=== PATIENT | female | born 1960 | race Caucasian/White ===

== ENCOUNTER 2016-08-14 16:29 | Inpatient (IN) | payer OTHER ==
[2016-08-14] VITALS (19 sets, daily range): BP systolic 119–144; BP diastolic 55–79; PULSE 67–79; RESP 15–20; Ht 165.1 cm; Wt 80.0 kg
[~2016-08-14] VITALS: Ht 165.1 cm; Wt 80.0 kg
[2016-08-14] MEDS ORDERED: NITROGLYCERIN 2% 1 GM OINT PKT TD STA (16:44)
[2016-08-14] MEDS ORDERED: ASPIRIN 325 MG TAB PO STA (16:44)
[2016-08-14 16:52] LABS: ADD SCAN DIFF NO
[2016-08-14 16:53] LABS: BASOPHILS % 0.5 % (0.0-2.0); EOSINOPHILS # 0.2 10^3/ul (0.0-0.5); EOSINOPHILS % 3.6 % (0.0-7.0); HEMATOCRIT 35.9 % (37.0-47.0); HEMOGLOBIN 11.5 g/dl (12.0-16.0); LYMPHOCYTES # 1.9 10^3/ul (0.8-2.9); MEAN CORPUSCULAR HEMOGLOBIN 29.7 pg (29.0-33.0); MEAN CORPUSCULAR VOLUME 92.8 fl (82.0-101.0); MEAN PLATELET VOLUME 9.3 fl (7.4-10.4); MONOCYTE # 0.4 10^3/ul (0.3-0.9); MONOCYTES % 6.1 % (0.0-11.0); NEUTROPHIL # 3.9 10^3/ul (1.6-7.5); NEUTROPHILS % 60.6 % (39.0-77.0); PLATELET COUNT 245 10^3/UL (140-415); RED BLOOD COUNT 3.87 10^6/ul (4.20-5.40); WHITE BLOOD COUNT 6.4 10^3/ul (4.8-10.8)
[2016-08-14] MEDS ORDERED: NITROGLYCERIN (SL) 0.4 MG TAB SL PRN (17:00)
[2016-08-14] MEDS ORDERED: OMEP40CA6 PO (17:01)
[2016-08-14] MEDS ORDERED: METO5TAB58 PO (17:02)
[2016-08-14] MEDS ORDERED: LANT3I SC (17:02)
[2016-08-14] MEDS ORDERED: MTF1000T PO (17:03)
[2016-08-14] MEDS ORDERED: LOSA25TA5 PO (17:03)
[2016-08-14] MEDS ORDERED: LOVA20TA PO (17:03)
--- NOTE | 2016-08-14 17:05 | RADRPT ---
PROCEDURE: XR Chest. CLINICAL INDICATION: Chest pain TECHNIQUE: A single portable view of the chest was obtained. COMPARISON: None FINDINGS: The cardiomediastinal silhouette is within normal limits. The lung volumes are low with bibasilar co mpressive atelectasis. The lungs and pleural spaces are clear. The soft tissues and osseous structu res are unremarkable. IMPRESSION: No acute cardiopulmonary disease. Low lung volumes with bibasilar compressive atelectasis. RPTAT: HPNM Physician Iris Date Time Electronically viewed and signed by Prasanna Roque Physician on 08/14/2016 17:04 /
[2016-08-14 17:07] LABS: CHLORIDE 101 mmol/L (97-110); POTASSIUM 3.9 mmol/L (3.5-5.1); SODIUM 139 mmol/L (135-144)
[2016-08-14 17:08] LABS: INR 0.98
[2016-08-14] MEDS ORDERED: IODIXANOL LOCM 100 ML BTL ONE (17:08)
[2016-08-14] MEDS ORDERED: FENTAnyl 50 MCG/ML VIAL ONE (17:08)
[2016-08-14] MEDS ORDERED: NITROGLYCERIN (IC) 100 MCG/ML INJ ONE (17:08)
[2016-08-14] MEDS ORDERED: MIDAZOLAM 1 MG/ML 2 ML INJ ONE (17:08)
[2016-08-14] MEDS ORDERED: VERAPAMIL 5 MG INJ ONE (17:08)
[2016-08-14] MEDS ORDERED: HEPARIN 1000 UNITS/ML 10 ML INJ ONE (17:08)
[2016-08-14] MEDS ORDERED: LIDOCAINE 1% (MDV) 20 ML INJ ONE ×2 (17:08→17:58)
[2016-08-14] MEDS ORDERED: IOHEXOL 350MG/ML 50 ML BTL ONE (17:08)
[2016-08-14 17:09] LABS: PARTIAL THROMBOPLASTIN TIME 29.2 Sec (25.0-35.0)
[2016-08-14 17:10] LABS: ANION GAP 15 (8-16); BLOOD UREA NITROGEN 10 mg/dl (7-20); CARBON DIOXIDE 27 mmol/L (21-31); CREATININE 0.53 mg/dl (0.44-1.00)
[2016-08-14 17:11] LABS: CALCIUM 9.4 mg/dl (8.4-10.2); GLUCOSE 239 mg/dl (70-220)
[2016-08-14] MEDS ORDERED: SOD CHLORIDE 0.9% 500 ML ONE (17:12)
[2016-08-14 17:26] LABS: TROPONIN-I < 0.012 ng/ml (0.00-0.12)
--- NOTE | 2016-08-14 18:41 | ERA ---
ER Documentation Chief Complaint Date/Time DATE: 08/14/16 TIME: 18:38 Chief Complaint CHEST PAIN AND ABDOMINAL PAIN X 15 DAYS HPI Patient is a 55-year-old female with diabetes who presents with chest pain. The patient has left-sided chest pain and abdominal pain which started 15 days ago. It is been coming and going. The patient walked into the emergency department. She has had no treatment as of yet. ROS All systems reviewed and are negative except as per history of present illness. Medications Home Meds Reported Medications Metformin* (Glucophage*) 1,000 Mg Tablet, 1000 MG PO BID, #60 TAB 08/14/16 Losartan Potassium* (Losartan Potassium*) 25 Mg Tablet, 25 MG PO DAILY, TAB 08/14/16 Lovastatin* (Lovastatin*) 20 Mg Tablet, 20 MG PO DAILY, TAB 08/14/16 Metoclopramide* (Reglan*) 5 Mg Tablet, 5 MG PO AC MEALS Y for PRN, TAB 08/14/16 Insulin Glargine* (Lantus*) 100 Unit/Ml Soln, 50 UNIT SC BID, #1 VIAL 08/14/16 Omeprazole* (Omeprazole*) 40 Mg Capsule.dr, 40 MG PO DAILY, #30 CAP 08/14/16 Allergies Allergies: Coded Allergies: No Known Allergy (Unverified , 08/14/16) PMhx/Soc History of Surgery: No Anesthesia Reaction: No Hx Neurological Disorder: No Hx Respiratory Disorders: No Hx Cardiac Disorders: Yes (HTN, HYPERLIPIDEMIA) Hx Psychiatric Problems: No Hx Miscellaneous Medical Probl: Yes (DM) Hx Alcohol Use: No Hx Substance Use: No Hx Tobacco Use: No Smoking Status: Never smoker FmHx Family History: No coronary disease Physical Exam Vitals Vital Signs Date Time Temp Pulse Resp B/P Pulse Ox O2 Delivery O2 Flow Rate FiO2 08/14/16 16:34 98.7 85 18 158/72 98 Physical Exam Const: No acute distress Head: Atraumatic Eyes: Normal Conjunctiva ENT: Normal External Ears, Nose and Mouth. Neck: Full range of motion..~ No meningismus. Resp: Clear to auscultation bilaterally Cardio: Regular rate and rhythm, no murmurs Abd: Soft, non tender, non distended. Normal bowel sounds Skin: No petechiae or rashes Back: No midline or flank tenderness Ext: No cyanosis, or edema Neur: Awake and alert Psych: Normal Mood and Affect Result Diagram: 08/14/16 1645 08/14/16 1645 Results 24 hrs Laboratory Tests Test 08/14/16 16:45 White Blood Count 6.410^3/ul Red Blood Count 3.8710^6/ul Hemoglobin 11.5g/dl Hematocrit 35.9% Mean Corpuscular Volume 92.8fl Mean Corpuscular Hemoglobin 29.7pg Mean Corpuscular Hemoglobin Concent 32.0g/dl Red Cell Distribution Width 13.0% Platelet Count 88555^3/UL Mean Platelet Volume 9.3fl Neutrophils % 60.6% Lymphocytes % 29.0% Monocytes % 6.1% Eosinophils % 3.6% Basophils % 0.5% Nucleated Red Blood Cells % 0.0/100WBC Neutrophils # 3.910^3/ul Lymphocytes # 1.910^3/ul Monocytes # 0.410^3/ul Eosinophils # 0.210^3/ul Basophils # 0.010^3/ul Nucleated Red Blood Cells # 0.010^3/ul Prothrombin Time 13.0Sec Prothrombin Time Ratio 1.0 INR International Normalized Ratio 0.98 Activated Partial Thromboplast Time 29.2Sec Sodium Level 139mmol/L Potassium Level 3.9mmol/L Chloride Level 101mmol/L Carbon Dioxide Level 27mmol/L Anion Gap 15 Blood Urea Nitrogen 10mg/dl Creatinine 0.53mg/dl Glucose Level 239mg/dl Calcium Level 9.4mg/dl Troponin I < 0.012ng/ml Current Medications Medications (Trade) Dose Ordered Sig/Opal Route PRN Reason Start Time Stop Time Status Last Admin Dose Admin Aspirin (Aspirin) 325 mg ONCE STAT PO 08/14/16 16:44 08/14/16 16:45 DC 08/14/16 16:53 Nitroglycerin (Nitroglycerin 2% Oint) 1 inch ONCE STAT TD 08/14/16 16:44 08/14/16 16:45 DC 08/14/16 16:53 Procedures/MDM EKG read by me: Rate/Rhythm: Regular rate and rhythm at a normal rate Intervals: Normal Impression: ST elevations of V1 and V2 with reciprocal depressions of 2 and 3 consistent with STEMI Chest X-ray 1V Interpreted by me: Soft Tissue: No acute abnormalities Bones: No acute abnormalities Mediastinum/Cardiac Silhouette/Lungs: No acute abnormalities Patient is a 55-year-old female with diabetes who presents with chest pain. Her EKG showed STEMI at 1640 and I called a code STEMI immediately. The patient had walked in the emergency department. I spoke with Dr. Vasquez at 1644 and she agreed with cardiac catheterization. The patient was transferred to the cardiac [facility] at 1659 by the [facility] team. The patient was given aspirin nitroglycerin. Dr. Palmer prefers to anticoagulate in the [facility]. The patient will be admitted to the panel team and I spoke with Dr. Yuan for admission. At this point I doubt pneumonia, pneumothorax, pulmonary embolism, or aortic dissection. Critical Care: Time: 35 minutes excluding all billable procedures. Treatments/Evaluations: Close monitoring and treatment of unstable vital signs, cardiorespiratory, and neurologic status, while maintaining tight balance of fluid, respiratory, and cardiac interventions. Departure Diagnosis: Primary Impression: STEMI (ST elevation myocardial infarction) Qualified Code: I21.3 - ST elevation myocardial infarction (STEMI), unspecified artery Additional Impressions: Chest pain Qualified Code: R07.9 - Chest pain, unspecified type Anemia Qualified Code: D64.9 - Anemia, unspecified type Hyperglycemia Condition: Critical RONY GARCIA MD August 14, 2016 18:41
--- NOTE | 2016-08-14 18:46 | CONS ---
Date/Time of Note Date/Time of Note DATE: 08/14/16 TIME: 18:36 Assessment/Plan Assessment/Plan Chief Complaint/Hosp Course 55 yo with chest pain and abnormal ekg. This is likely acute gastritis, and ekg may represent a channelopathy such as Brugada Syndrome. 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 PPI Dietary counselling Consider GI evaluation Consultation Date/Type/Reason Admit Date/Time Date of Consultation: August 14, 2016 Referring Provider: RONY GARCIA MD Hx of Present Illness 55 yo with htn, dm, hchol, states compliant with meds, has had chest pain for the past 15 days. Pain worse today which led to her presentation today. Pain worse with eating, worse at night, pt diagnosed by pcp with gastritis and put on omeprazole with no relief, has had a lot of abdominal distension and belching. Pressure is in chest and abdomen, but more her chest. EKG in ER abnormal with ST elevations in V1-V2 and slight depressions in the inferior leads, thus patient taken to the [facility]. Coronaries had no evidence of acute lesions, LVEF normal with normal wall motion. Constitutional: improved, no complaints Eyes: no complaints ENT: no complaints Respiratory: no complaints Cardiovascular: chest pain (pressure) Gastrointestinal: decreased appetite, nausea, other (bloating) Genitourinary: no complaints Musculoskeletal: no complaints Skin: no complaints Neurologic: no complaints Endocrine: no complaints Lymphatic: no complaints Psychological: nl mood/affect, no complaints Immunologic: no complaints Past Medical History Medical History: diabetes, high cholesterol, hypertension Past Surgical History Past Surgical Hx: no surgical history Family History Significant Family History: no pertinent family hx (no premature cad) Social History Alcohol Use: none Smoking Status: Never smoker Exam/Review of Systems Vital Signs Vitals Vital Signs Date Time Temp Pulse Resp B/P Pulse Ox O2 Delivery O2 Flow Rate FiO2 08/14/16 16:34 98.7 85 18 158/72 98 Exam Constitutional: alert, oriented, well developed Psych: nl mood/affect Head: atraumatic, normocephalic Eyes: EOMI, nl conjunctiva, nl lids ENMT: nl external ears & nose Neck: No bruits, No jvd Respiratory: clear to auscultation, normal air movement Cardiovascular: nl pulses, regular rate and rhythm Neurological: nl mental status, nl speech Skin: nl turgor Results Result Diagram: 08/14/16 1645 08/14/16 1645 Results 24 hrs Laboratory Tests Test 08/14/16 16:45 White Blood Count 6.4 Red Blood Count 3.87 L Hemoglobin 11.5 L Hematocrit 35.9 L Mean Corpuscular Volume 92.8 Mean Corpuscular Hemoglobin 29.7 Mean Corpuscular Hemoglobin Concent 32.0 Red Cell Distribution Width 13.0 Platelet Count 245 Mean Platelet Volume 9.3 Neutrophils % 60.6 Lymphocytes % 29.0 Monocytes % 6.1 Eosinophils % 3.6 Basophils % 0.5 Nucleated Red Blood Cells % 0.0 Neutrophils # 3.9 Lymphocytes # 1.9 Monocytes # 0.4 Eosinophils # 0.2 Basophils # 0.0 Nucleated Red Blood Cells # 0.0 Prothrombin Time 13.0 Prothrombin Time Ratio 1.0 INR International Normalized Ratio 0.98 Activated Partial Thromboplast Time 29.2 Sodium Level 139 Potassium Level 3.9 Chloride Level 101 Carbon Dioxide Level 27 Anion Gap 15 Blood Urea Nitrogen 10 Creatinine 0.53 Glucose Level 239 H Calcium Level 9.4 Troponin I < 0.012 Medications Medications Current Medications Miscellaneous Information HOLD all METFORMIN ... ONCE ONCE XX ; Start 08/14/16 at 19:00; Stop 08/14/16 at 19:01; Status UNV Sodium Chloride (NS) 1,000 ml @ 75 mls/hr [id number] IV ; Start 08/14/16 at 18:31 ; Stop 08/14/16 at 23:30; Status UNV Procedures Procedures EKG from the ER shows ST elevations in V1 and V2 with very small R waves, and minor ST depressions in II and AVF. MICHEAL MCKEE August 14, 2016 18:46
--- NOTE | 2016-08-14 18:57 | EN ---
Date/Time of Note Date/Time of Note DATE: 08/14/16 TIME: 18:51 Event Note Cardiology Cardiology Event Note Cardiac Catheterization Report Date of Procedure: August 14, 2016 Pre-Procedure Dx: Chest pain with abnormal EKG with ST elevations in the anteroseptal leads Post-Procedure Dx: No acute coronary disease, normal lvef Procedures performed: Coronary angiography, left heart catheterization, left ventriculography, Findings: Left main long and normal LAD 20% mid. The distal vessel is very small, wraps around the apex. The second diagonal is also very small and has 95% ostial disease, the vessel measures maybe 1 mm in diameter. The left circumflex is small and nondominant, terminates at one moderate sized obtuse marginal The right coronary artery is large and dominant without significant disease LV gram demonstrates normal LV systolic function, EF 65%, no wall motion abnormalities. Indications: Patient presented with chest pain starting 15 days prior to presentation, worse and more severe today, EKG shows ST elevations in V1-V2 with reciprocal changes. Informed consent obtained. Patient received sedation with versed and fentanyl. Then access obtained in right radial artery after Yordy's test, modified Seldinger technique used, 6F sheath placed. Through the sheath, heparin 5000 units, verapamil 2.5 mg and ntg 200 mcg given. Unfortunately, wires and catheters would not pass to the ascending thoracic aorta, so access obtained in the right groin after fluoroscopy used for identifying landmarks, 6f sheath placed. Using a J-wire, a JR4 diagnostic and FL3.5 guide were advanced to the aortic root, engaged the RCA and LM respectively. Images taken with injection of contrast. Pigtail advanced to the ascending thoracic aorta, crossed the aortic valve and pressures measured, including a pullback. LV gram performed with injection of contrast. Discussion: Noncardiac chest pain likely secondary to GERD. Abnormal EKG, possibly Brugada Syndrome. Patient will be monitored overnight. MICHEAL MCKEE August 14, 2016 18:57
[2016-08-14 19:12] LABS: ADD SCAN DIFF NO
[2016-08-14 19:14] LABS: BASOPHILS % 0.5 % (0.0-2.0); EOSINOPHILS # 0.2 10^3/ul (0.0-0.5); EOSINOPHILS % 3.7 % (0.0-7.0); HEMATOCRIT 32.5 % (37.0-47.0); HEMOGLOBIN 10.2 g/dl (12.0-16.0); LYMPHOCYTES # 1.5 10^3/ul (0.8-2.9); LYMPHOCYTES % 25.9 % (15.0-51.0); MEAN CORPUSCULAR HEMOGLOBIN 29.4 pg (29.0-33.0); MEAN CORPUSCULAR HGB CONC 31.4 g/dl (32.0-37.0); MEAN CORPUSCULAR VOLUME 93.7 fl (82.0-101.0); MEAN PLATELET VOLUME 9.8 fl (7.4-10.4); MONOCYTE # 0.3 10^3/ul (0.3-0.9); MONOCYTES % 5.4 % (0.0-11.0); NEUTROPHIL # 3.7 10^3/ul (1.6-7.5); NEUTROPHILS % 64.3 % (39.0-77.0); PLATELET COUNT 199 10^3/UL (140-415); RED BLOOD COUNT 3.47 10^6/ul (4.20-5.40); RED CELL DISTRIBUTION WIDTH 13.1 % (11.5-14.5); WHITE BLOOD COUNT 5.8 10^3/ul (4.8-10.8)
[2016-08-14] MEDS ORDERED: SOD CHLORIDE 0.9% 1,000 ML IV SCH (21:00)
[2016-08-14] MEDS: ACCU-CHEK XX SCH (22:24)
[2016-08-14] MEDS ORDERED: ZOLPIDEM 5 MG TAB PO PRN (23:30)
[2016-08-14] MEDS ORDERED: POLYETHYLENE GLYCOL 17 GM PACKET PO ONE (23:30)
[2016-08-15] VITALS (12 sets, daily range): BP systolic 145–179; BP diastolic 67–78; PULSE 61–74; RESP 16–20
[2016-08-15] MEDS: ACCU-CHEK XX SCH ×4 (07:30→21:30)
--- NOTE | 2016-08-15 08:30 | PN ---
Date/Time of Note Date/Time of Note DATE: 08/15/16 TIME: 08:18 Assessment/Plan VTE Prophylaxis VTE Prophylaxis Intervention: ambulation Lines/Catheters IV Catheter Type (from Nrsg): Peripheral IV Assessment/Plan Chief Complaint/Hosp Course 55 yo with chest pain and abnormal ekg. This is likely acute gastritis, and ekg may represent a channelopathy such as Brugada Syndrome. 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 Exam/Review of Systems Vital Signs Vitals Vital Signs Date Time Temp Pulse Resp B/P Pulse Ox O2 Delivery O2 Flow Rate FiO2 08/15/16 08:17 64 08/15/16 07:43 98.0 18 160/71 97 08/14/16 21:41 Room Air Intake and Output 08/14/16 08/14/16 08/15/16 15:00 23:00 07:00 Intake Total 100 ml 300 ml Output Total 650 ml Balance -550 ml 300 ml Exam Constitutional: alert, oriented, well developed Psych: nl mood/affect Head: atraumatic, normocephalic Eyes: EOMI, PERRL, nl conjunctiva, nl lids, nl sclera ENMT: nl external ears & nose, nl lips & teeth, nl nasal mucosa & septum Neck: No bruits, No jvd Respiratory: clear to auscultation, normal air movement Cardiovascular: nl pulses, regular rate and rhythm Gastrointestinal: distended, soft, tender (diffusely) Musculoskeletal: nl extremities to inspection Extremities: normal pulses (right wrist and right groin sites intact, no bruit no hematoma) Neurological: nl mental status, nl speech Skin: nl turgor, No rash or lesions Results Result Diagram: 08/14/16 1905 08/14/16 1645 Results 24 hrs Laboratory Tests Test 08/14/16 16:45 08/14/16 19:05 08/14/16 20:22 08/14/16 22:16 White Blood Count 6.4 5.8 Red Blood Count 3.87 L 3.47 L Hemoglobin 11.5 L 10.2 L Hematocrit 35.9 L 32.5 L Mean Corpuscular Volume 92.8 93.7 Mean Corpuscular Hemoglobin 29.7 29.4 Mean Corpuscular Hemoglobin Concent 32.0 31.4 L Red Cell Distribution Width 13.0 13.1 Platelet Count 245 199 Mean Platelet Volume 9.3 9.8 Neutrophils % 60.6 64.3 Lymphocytes % 29.0 25.9 Monocytes % 6.1 5.4 Eosinophils % 3.6 3.7 Basophils % 0.5 0.5 Nucleated Red Blood Cells % 0.0 0.0 Neutrophils # 3.9 3.7 Lymphocytes # 1.9 1.5 Monocytes # 0.4 0.3 Eosinophils # 0.2 0.2 Basophils # 0.0 0.0 Nucleated Red Blood Cells # 0.0 0.0 Prothrombin Time 13.0 Prothrombin Time Ratio 1.0 INR International Normalized Ratio 0.98 Activated Partial Thromboplast Time 29.2 Sodium Level 139 Potassium Level 3.9 Chloride Level 101 Carbon Dioxide Level 27 Anion Gap 15 Blood Urea Nitrogen 10 Creatinine 0.53 Glucose Level 239 H Calcium Level 9.4 Troponin I < 0.012 Bedside Glucose 221 H 179 Test 08/15/16 07:56 Bedside Glucose 187 Medications Medications Current Medications Miscellaneous Information (* Miscellaneous Pharmacy Order) HOLD all METFORMIN ... ONCE XX ; Start 08/14/16 at 19:00; Stop 08/16/16 at 18:59 Zolpidem Tartrate (Ambien) 5 mg HS PRN PO INSOMNIA; Start 08/14/16 at 23:30 Acetaminophen/ Hydrocodone Bitart ([place] (5/325)) 1 tab Q4H PRN PO pain; Start 08/14/16 at 23:30 MICHEAL MCKEE August 15, 2016 08:30
--- NOTE | 2016-08-15 12:24 | HP ---
Date/Time of Note Date/Time of Note DATE: 08/15/16 TIME: 12:14 Assessment/Plan Lines/Catheters IV Catheter Type (from Nrsg): Peripheral IV Assessment/Plan Assessment/Plan IMPRESSION This is a 55 yo male with hx of HTN, DM, DL who c/o chest pain with EKG showing STEMI s/p cath without significant findings and as such had chest pain of non- cardiac origin. EKG finding likely of Brugada pattern Plan pt likely has gastritis. he will be discharged with PPI. He need to f/u closely with PCP. HPI/ROS Admit Date/Time Admit Date/Time Hx of Present Illness This is a 55 yo male with hx of HTN, DM, DL who c/o chest pain with EKG showing STEMI. Pt has a heart cath with following findings: Findings: Left main long and normal LAD 20% mid. The distal vessel is very small, wraps around the apex. The second diagonal is also very small and has 95% ostial disease, the vessel measures maybe 1 mm in diameter. The left circumflex is small and nondominant, terminates at one moderate sized obtuse marginal The right coronary artery is large and dominant without significant disease LV gram demonstrates normal LV systolic function, EF 65%, no wall motion abnormalities. It is felt that pt's chest pain was not cardiac in origin. ROS Eyes: no complaints ENT: no complaints Respiratory: no complaints Cardiovascular: chest pain (pressure) Gastrointestinal: decreased appetite, nausea, other (bloating) Genitourinary: no complaints Musculoskeletal: no complaints Skin: no complaints Neurologic: no complaints Lymphatic: no complaints Psychological: nl mood/affect Immunologic: no complaints PMH/Family/Social Past Medical History Medical History: diabetes, high cholesterol, hypertension Past Surgical History Past Surgical Hx: no surgical history Social History Alcohol Use: none Smoking Status: Never smoker Exam/Review of Systems Vital Signs Vitals Vital Signs Date Time Temp Pulse Resp B/P Pulse Ox O2 Delivery O2 Flow Rate FiO2 08/15/16 12:05 74 08/15/16 12:01 98.0 18 155/77 98 08/14/16 21:41 Room Air Intake and Output 08/14/16 08/14/16 08/15/16 15:00 23:00 07:00 Intake Total 100 ml 300 ml Output Total 650 ml Balance -550 ml 300 ml Labs Result Diagram: 08/14/16 1905 08/14/16 1645 Medications Medications Current Medications Miscellaneous Information (* Miscellaneous Pharmacy Order) HOLD all METFORMIN ... ONCE XX ; Start 08/14/16 at 19:00; Stop 08/16/16 at 18:59 Zolpidem Tartrate (Ambien) 5 mg HS PRN PO INSOMNIA; Start 08/14/16 at 23:30 Acetaminophen/ Hydrocodone Bitart ([place] (5/325)) 1 tab Q4H PRN PO pain; Start 08/14/16 at 23:30 MACI SERRA MD August 15, 2016 12:24
[2016-08-15 12:43] LABS: CHLORIDE 106 mmol/L (97-110); SODIUM 139 mmol/L (135-144)
[2016-08-15 12:47] LABS: ANION GAP 14 (8-16); BLOOD UREA NITROGEN 7 mg/dl (7-20); CALCIUM 8.9 mg/dl (8.4-10.2); CARBON DIOXIDE 23 mmol/L (21-31); CHOL/HDL RATIO 2.2 RATIO; CHOLESTEROL 95 mg/dl (100-200); CREATININE 0.45 mg/dl (0.44-1.00); GLUCOSE 191 mg/dl (70-220); HDL CHOLESTEROL 42 mg/dl (37-92); TRIGLYCERIDES 123 mg/dl (0-149)
[2016-08-15 13:02] LABS: TROPONIN-I < 0.012 ng/ml (0.00-0.12)
[2016-08-15] MEDS ORDERED: INSULIN GLARGINE [LANtus] 3 ML PEN SC ONE (16:00)
[2016-08-15] MEDS: AMLODIPINE 5 MG TAB PO SCH (16:55)
--- NOTE | 2016-08-15 17:04 | PDOCDIS ---
Discharge Instructions DIAGNOSIS Discharge Diagnosis: atypical chest pain CONDITION Patient Condition: Good HOME CARE INSTRUCTIONS: Special Diet: 1800 ada ACTIVITY: Activity Restrictions: Slowly Increase Activity FOLLOW UP/APPOINTMENTS Appointments PCP 1wk. ask for referral for colonoscopy if not done in last 5yrs. DERICK TANNER MD August 15, 2016 17:04
[2016-08-15] MEDS ORDERED: AMLO-145 PO (17:08)
[2016-08-15] MEDS ORDERED: OMEP40CA6 PO (17:08)
--- NOTE | 2016-08-15 18:18 | RADRPT ---
Vent Rate: 63 bpm RR Interval: 0 msec MD Interval: 142 msec QRS Duration: 102 msec QT Interval: 436 msec QTC Interval: 446 msec P-R-T [place]: 18 - -17 - 43 degrees Normal sinus rhythm Cannot rule out Anterior infarct , age undetermined Abnormal ECG Electronically Signed By: Aaron Santo [id number]
[2016-08-15] MEDS ORDERED: hydrALAzine 20 MG INJ IV ONE (21:00)
[2016-08-15] MEDS: HYDROCODONE/APAP (5/325) TAB PO PRN (21:24)
[2016-08-15] MEDS ORDERED: LABETALOL HCL 20MG INJ IV ONE (22:30)
[2016-08-15] MEDS ORDERED: INSULIN ASPART [NOVOLOG] 3 ML PEN SC ONE (22:30)
[2016-08-15] MEDS ORDERED: GLUCOSE GEL 15 GRAM TUBE BUCCAL PRN (23:00)
[2016-08-15] MEDS ORDERED: DEXTROSE 50% 50 ML SYRINGE IV PRN ×2 (23:00)
[2016-08-15] MEDS ORDERED: GLUCOSE GEL 15 GRAM TUBE PO PRN ×2 (23:00)
[2016-08-15] MEDS ORDERED: GLUCAGON 1 MG INJ IM PRN (23:00)
[2016-08-16] VITALS (11 sets, daily range): BP systolic 131–157; BP diastolic 61–73; PULSE 55–76; RESP 16–18
[2016-08-16] MEDS: METOPROLOL 50 MG TAB PO SCH ×2 (00:53→08:45)
[2016-08-16] MEDS: AMLODIPINE 5 MG TAB PO SCH (08:45)
[2016-08-16] MEDS: ACCU-CHEK XX SCH ×3 (08:45→17:48)
[2016-08-16] MEDS: HYDROCODONE/APAP (5/325) TAB PO PRN (11:51)
--- NOTE | 2016-08-16 14:03 | RADRPT ---
Echocardiogram Report Patient Name: WILEY MARTINEZ Gender: Female Date: 1960 Study Date: 15-Aug-2016 Education Coordinator: [facility] Location: [id number] Ref. Physician: DEBRA GUTIÉRREZ Quality: Adequate Procedures: Transthoracic echocardiogram with complete 2D, M-Mode, and doppler examination. Indications: Chest Pain. 2D/M Mode Doppler Measurement Value Normal Ranges Measurement Value Normal Ranges LVIDd 2D 3.2 3.5 - 5.6 cm TORRES Vmax 1.6 cm2 LVIDs 2D 2.2 2.1 - 4.1 cm TORRES VTI 1.8 cm2 FS 2D 32.5 % AV Mean George 1.5 m/sec LVPWd 2D 1.1 0.6 - 1.1 cm AV Mean PG 10.0 mmHg IVSd 2D 1.1 0.6 - 1.1 cm AV Peak George 2.3 m/sec IVS/LVPW 2D 1.0 AV Peak PG 20.0 mmHg AoR Diam 2D 2.5 2.0 - 3.7 cm AV VTI 48.5 cm LA/Ao 2D 2 0 - 1 LVOT Mean George 0.9 m/sec EDV 2D 32.8 cm3 LVOT Mean PG 4.0 mmHg ESV 2D 10.1 cm3 LVOT Peak George 1.3 m/sec LA Dimen 2D 4.4 2.3 - 4.0 cm LVOT Peak PG 6.0 mmHg LVOT Diam 1.9 cm LVOT VTI 31.1 cm LVOT Area 2.8 cm2 MV E Peak George 1.0 m/sec MV A Peak George 0.9 m/sec MV E/A 1.1 MV Decel Time 243 msec MV E/A 1.1 TR Peak George 2.5 m/sec TR Peak PG 24.0 mmHg RVSP 27.0 mmHg Findings Left Ventricle: Normal left ventricular systolic function. Normal left ventricular cavity size. Mild concentric left ventricular hypertrophy. Ejection fraction is visually estimated at 65 %. Right Ventricle: Normal right ventricular size. Normal right ventricular systolic function. Left Atrium: There is moderate enlargement of left atrium. Right Atrium: The right atrium is normal in size. Mitral Valve: Mitral valve leaflets appear mildly thickened. Mild mitral annular calcification. Mild mitral valve regurgitation. Aortic Valve: Aortic valve Max velocity 2.25 m/sec. Max PG 20.00 mmHg. Mean PG 9.00 mmHg. Aortic valve area 1.90 cm2. Aortic sclerosis without stenosis. No aortic regurgitation. Tricuspid Valve: Normal right ventricular systolic pressure. Tricuspid valve not well visualized. Estimated peak PA systolic pressure 27 mmHg. There is trace to mild tricuspid regurgitation. Pulmonic Valve: Pulmonic valve not well visualized. Pericardium: Trivial pericardial effusion. Aorta: Normal aortic root. IVC: Normal size and normal respiratory collapse consistent with normal right atrial pressure. Conclusions Fair quality study. Mild concentric left ventricular hypertrophy with normal systolic function. Grade 1 diastolic dysfunction. Moderate left atrial enlargement. Mild tricuspid regurgitation with normal pulmonary pressures. Aortic sclerosis without significant stenosis. Mild mitral regurgitation. Electronically Signed By: Debra Gutiérrez 16-Aug-2016 14:03:10 -0700 Patient Name: WILEY MARTINEZ Study Date: 15-Aug-2016 [id number]
[2016-08-16] MEDS ORDERED: ACETAMINOPHEN 650MG/20.3ML CUP PO PRN (18:00)
--- NOTE | 2016-08-17 04:41 | DS ---
DATE OF ADMISSION: 08/14/2016 DATE OF DISCHARGE: 08/16/2016 PRIMARY CARE PHYSICIAN: Unknown. SIGN DESIGNER: Dr. Gutiérrez DIAGNOSIS ON ADMISSION: Atypical chest pain. DIAGNOSES ON DISCHARGE: 1. Brugada pattern. 2. Diabetes. 3. Hypertension. 4. Metabolic syndrome. 5. Anemia. HOSPITAL COURSE: This is a 55-year-old female admitted with chest pain. In the ER, EKG was abnorma l, concerning for DE. The patient was taken urgently to the slab tripper. No acute coronary vessel dis ease was found or requiring intervention. Scroll Machine Operator recommended evaluation and management for Br ugada pattern, not Brugada syndrome. The patient has no history of syncope or sudden family , and therefore this is not the syndrome. Her EKG looks as if it has ST segment elevation in anterior leads with concave pattern and downsloping ST segment. I would recommend risk factor modification. The patient is stable and fit for discharge. In terms of probable gastritis, this may be also related to gastroparesis. The patient has chronic diabetes. Recommended 5 small meals spaces throughout the day. DISCHARGE PLAN: Home. FOLLOWUP: 1. With primary. 2. Dr. Gutiérrez in 2 to 3 weeks. DIET: 1800 ADA. ACTIVITY: As tolerated. No driving. DURABLE MEDICAL EQUIPMENT: None. CODE STATUS: FULL. CONDITION: Stable. BARRIERS TO DISCHARGE: None. PENDING TESTS: None. FUNCTIONAL STATUS: The patient is awake, alert, agrees with plan of care. CONDITION: Good. REASON FOR ADMISSION: Chest pain. ALLERGIES: NO KNOWN DRUG ALLERGIES. IMAGING: A 2-D echo read as EF of 65, mild concentric LVH, grade I diastolic dysfunction, moderate left atrial enlargement, mild mitral regurgitation. Cardiac catheterization showed mild diffuse dis ease; however, the chest pain was noted to be noncardiac, probably secondary to GERD. Chest x-ray: No acute process. LABORATORY DATA: Troponin negative. White cell count of 5.8, hemoglobin and hematocrit of 10 and 3 2, MCV 93, platelets of 199. INR 0.9. Sodium 139, potassium 4, chloride 106, bicarbonate 23, BUN o f 7, creatinine 0.4. A1c of 8.1. Calcium was 8.9. Triglycerides 123. Total of 95, LDL of 28, HDL of 42. Blood sugar and blood pressure not at goal and will need followups. DISCHARGE PLAN: Home. Follow up with primary care. DISCHARGE MEDICATIONS: 1. Lantus 50 b.i.d. 2. Losartan 25. 3. Lovastatin 20. 4. Metformin 1000 b.i.d. 5. Reglan 5 mg before meals p.r.n. ALTERED MEDICATION: 1. Omeprazole now 40 mg twice daily. 2. Norvasc 5 mg daily. Dictated By: DERICK REY/OUMOU Conf#: [id number] DID#: [id number] CC: MICHEAL GUTIÉRREZ MD;*EndCC*
[2016-08-17] MEDS ORDERED: AMLODIPINE 10 MG TAB PO SCH (09:00)
[2016-08-17] MEDS ORDERED: LOSARTAN 25 MG TAB PO SCH (09:00)
== END 2016-08-16 19:00 | disposition home or self-care (01) | DRG 287 ==
LOC: E/R 16:29 → CCL 16:56 → SDS 16:56 → MS4 18:56 → CCL 21:30
PROVIDERS: ADMIT Internal Medicine Interventional Cardiology; ATTEND Internal Medicine Interventional Cardiology
PROC: B211YZZ Fluoroscopy of Multiple Coronary Arteries using Other Contrast (ICD-10-PCS; 2016-08-14)
PROC: B215YZZ Fluoroscopy of Left Heart using Other Contrast (ICD-10-PCS; 2016-08-14)
PROC: 4A023N7 Measurement of Cardiac Sampling and Pressure, Left Heart, Percutaneous Approach (ICD-10-PCS; principal; 2016-08-14 17:30)
DX: R07.89 Other chest pain (principal); E88.81 Metabolic syndrome and other insulin resistance; K31.84 Gastroparesis; I10 Essential (primary) hypertension; E11.9 Type 2 diabetes mellitus without complications; D64.9 Anemia, unspecified; E78.5 Hyperlipidemia, unspecified; R94.31 Abnormal electrocardiogram [ECG] [EKG]; K29.70 Gastritis, unspecified, without bleeding
CPT/HCPCS: 36415; 71010; 80048; 80061; 82962; 83036; 84484; 85025; 85610; 85730; 93005; 93306; 93458; C1760; C1769; C1887; C1894; J0360; J1644; J1815; J2250; J3010; J7040; Q9967

== ENCOUNTER 2016-08-19 20:56 | Emergency (ER) | payer SELFPAY ==
[~2016-08-19] VITALS: Ht 160 cm; Wt 82.0 kg
[~2016-08-19 20:56] MED LIST: AMLO-145 PO; LANT3I SC; LOSA25TA5 PO; LOVA20TA PO; METO5TAB58 PO; MTF1000T PO; OMEP40CA6 PO
[2016-08-19 20:59] VITALS: Ht 160 cm; Wt 82.0 kg
== END 2016-08-19 21:22 | disposition left against medical advice (07) ==
LOC: FTE 20:56
DX: Z53.21 Procedure and treatment not carried out due to patient leaving prior to being seen by health care provider (principal)